=== PATIENT | female | born 1970 | race Caucasian/White ===

== ENCOUNTER 2021-04-16 16:43 | Emergency (ER) | payer OTHER ==
[~2021-04-16] VITALS: Ht 162.6 cm; Wt 49.9 kg
[2021-04-16] MEDS ORDERED: PERIDEX 0.12%473 M1 SWISH&SPIT (17:28)
[2021-04-16] MEDS ORDERED: AUGMENTIN 875-1 EACH PO (17:28)
[2021-04-16 17:42] VITALS: BP 115/70
== END 2021-04-16 17:45 | disposition home or self-care (01) ==
LOC: M.ERS 16:43
DX: K04.7 Periapical abscess without sinus (principal); F17.210 Nicotine dependence, cigarettes, uncomplicated